=== PATIENT | female | born 1965 | race Caucasian/White ===

== ENCOUNTER 2016-04-07 18:58 | Emergency (ER) | payer MEDICARE, OTHER ==
[2016-04-07 19:21] VITALS: TEMP 98.8
--- NOTE | 2016-04-07 21:14 | ED ---
Recheck HPI - General Chief Complaint: Recheck/Abnormal Lab/Rx Stated Complaint: post op infection Time Seen by Provider: 04/07/16 20:45 Source: patient, RN notes reviewed Mode of arrival: ambulatory - History of Present Illness Initial Comments: Patient is a 50-year-old female presents to the emergency room for evaluation of postsurgical wounds. Patient states she had a gastric bypass done by Dr. Fiore on 03/21/16. Patient states that she's been following up with Dr. Fiore for postop rechecks for the past few weeks. Patient states she had an ALLERGIC reaction to the Dermabond placed over the surgical incisions. Patient states she developed a rash around each one of her surgical wounds. Patient states she's been applying Vaseline over them. Patient states the rash has improved since it started but was wondering if she can apply anything else to the areas. Patient states Dr. Fiore does know about these rashes. Patient also states that she's been developing some green drainage coming out of one of her incisional sites. Patient states that she discussed this with Dr. Fiore during her last visit on the and Dr. Fiore said it would clear up. Patient denies being placed on any antibiotics. Patient denies any fevers or chills. Patient denies any significant abdominal pain. Patient denies chest pain or shortness of breath. - Related Data Home Medications Medication Instructions Recorded Confirmed Topiramate [Topamax] 100 mg PO HS 09/01/13 04/04/16 Escitalopram [Lexapro] 20 mg PO DAILY 10/14/13 04/04/16 Nystatin [Nystop] 1 applic TOPICAL BID 06/11/15 04/04/16 SUMAtriptan SUCCINATE [Imitrex] 100 mg PO DAILY PRN 02/15/16 04/04/16 ARIPiprazole [Abilify] 20 mg PO DAILY 03/21/16 04/04/16 Previous Rx's Medication Instructions Recorded Lisinopril-Hctz 10-12.5 mg 1 tab PO DAILY #30 tab 06/12/15 [Zestoretic 10-12.5] Omeprazole 40 mg PO DAILY #90 capsule. 03/21/16 Cephalexin [Keflex] 500 mg PO Q6HR 7 Days 01/01/17 Mupirocin 2% Oint [Bactroban 2% 1 applic TOPICAL TID PRN #1 tube 04/07/16 Oint] Allergies Allergy/AdvReac Type Severity Reaction Status Date / Time latex Allergy Rash/Hives Verified 04/07/16 19:21 Penicillins Allergy Rash/Hives,throat Verified 04/07/16 19:21 swelling DERMABON Allergy Itching Uncoded 04/07/16 19:21 Review of Systems ROS Statement: Those systems with pertinent positive or pertinent negative responses have been documented in the HPI. ROS Other: All systems not noted in ROS Statement are negative. Past Medical History Past Medical History: COPD, Hypertension, Sleep Apnea/CPAP/BIPAP Additional Past Medical History / Comment(s): TMJ, migraines, edema of legs and ankles, no cpap used, History of Any Multi-Drug Resistant Organisms: None Reported Past Surgical History: Adenoidectomy, Bariatric Surgery, Bladder Surgery, Cholecystectomy, Orthopedic Surgery, Tonsillectomy, Uterine Ablation Additional Past Surgical History / Comment(s): rt ankle ORIF , CERVICAL FUSION, LAPBAND PLACEMENT AND later REMOVAL, rt eye tube placed/removed, uvuloplasty, septoplasty.03-21-16 JUDY EN Y Past Anesthesia/Blood Transfusion Reactions: No Reported Reaction Past Psychological History: Schizoaffective Disorder Smoking Status: Former smoker Past Alcohol Use History: None Reported Additional Past Alcohol Use History / Comment(s): quit smoking Dec 2015, Smoked 1 PPD. Started smoking at age 14. Past Drug Use History: None Reported - Past Family History Mother Family Medical History: Diabetes Mellitus Brother(s) Family Medical History: Diabetes Mellitus Father Family Medical History: Cancer Additional Family Medical History / Comment(s): Colon Cancer General Exam - General Exam Comments Initial Comments: Sitting in exam room, no acute distress. Limitations: no limitations General appearance: alert, in no apparent distress Head exam: Present: atraumatic, normocephalic, normal inspection Eye exam: Present: normal appearance ENT exam: Present: normal exam Neck exam: Present: normal inspection Respiratory exam: Present: normal lung sounds bilaterally. Absent: respiratory distress Cardiovascular Exam: Present: regular rate, normal rhythm, normal heart sounds GI/Abdominal exam: Present: soft, other (Multiple feeling surgical wounds over her abdomen. Surrounded with erythematous papular-like rash. Incision in left lower quadrant that has some white drainage. No surrounding erythema.) Extremities exam: Present: normal inspection Back exam: Present: normal inspection Neurological exam: Present: alert, oriented X3, CN II-XII intact, normal gait Psychiatric exam: Present: normal affect, normal mood Skin exam: Present: warm, dry, intact, normal color Course Vital Signs 04/07/16 04/07/16 19:17 21:40 Temperature 98.8 F Pulse Rate 86 78 Respiratory 18 16 Rate Blood Pressure 137/91 131/74 O2 Sat by Pulse 97 98 Oximetry Medical Decision Making - Medical Decision Making Patient is a 50-year-old female presents to the emergency room for postsurgical wound evaluation. Will place patient on mupirocin ointment to apply over the rash and will place patient on Keflex to cover for beginning of wound infection. Culture was taken of the wound and pending. Advised patient to follow-up with her surgeon for reevaluation in 24-48 hours. Patient states she understands everything that was discussed with her. Return parameters discussed. Case discussed with Dr. Clinton. Disposition Clinical Impression: Surgical wound infection, Allergic reaction Disposition: HOME SELF-CARE Condition: Good Instructions: Acute Rash (ED), Wound Infection (ED) Additional Instructions: Clean surgical wound with antibacterial soap and water. Apply ointment as directed. Take antibiotics as directed. Please follow-up with surgeon for reevaluation. If any new symptom arises, symptoms worsen or fever develops, return to ER as soon as possible. Prescriptions: Cephalexin [Keflex] 500 mg PO Q6HR 7 Days Mupirocin 2% Oint [Bactroban 2% Oint] 1 applic TOPICAL TID PRN #1 tube PRN Reason: Allergic Reaction Referrals: Froilan Keith DO [Primary Care Provider] - 1-2 days Coretta Dailey MD [STAFF PHYSICIAN] - 1-2 days Time of Disposition: 21:11
[2016-04-07 21:41] VITALS: BP 131/74; PULSE 78; RESP 16
== END 2016-04-07 21:41 | disposition home or self-care (01) ==
LOC: EC 18:58
DX: T81.4XXA Infection following a procedure, initial encounter (principal); R21 Rash and other nonspecific skin eruption; T50.995A Adverse effect of other drugs, medicaments and biological substances, initial encounter; Z98.84 Bariatric surgery status; G43.909 Migraine, unspecified, not intractable, without status migrainosus; F25.9 Schizoaffective disorder, unspecified; I10 Essential (primary) hypertension; Z79.899 Other long term (current) drug therapy; Z91.040 Latex allergy status; Z88.0 Allergy status to penicillin; Z87.891 Personal history of nicotine dependence
CPT/HCPCS: 87070; 87077; 87186; 87205; 99283

== ENCOUNTER → 2016-04-17 | Outpatient (CLI) | payer MEDICARE, OTHER ==
[2016-04-17 15:31] VITALS: BP 193/108; PULSE 82; RESP 16; TEMP 97.8; BMI 46.4
--- NOTE | 2016-05-05 17:10 | P.PN ---
Progress Note - Text \ DATE OF SERVICE: 04/17/2016 CHIEF COMPLAINT: Followup gastric bypass. HISTORY OF PRESENT ILLNESS: Rupa Bradley is a 50-year-old female who is status post Esmer-en-Y gastric bypass on 03/21/2016. She is approximately 3 weeks out. She had just went to the emergency room one week ago, as she developed impetigo of the skin. She has severe allergy to Dermabond. As a result, she was placed on both Keflex including mupirocin with resolution of her itching along her skin. She also has been refilled of her blood pressure medications. She comes with moderate concerns of her medications. Her highest was 272 pounds. Her ideal body weight is 135 pounds. Today she comes in weighing 253 pounds. She has already lost 19 pounds in 3 weeks. She has lost actually 5 pounds in one week. Body mass index is now reduced from 50 down to 46.4. She has completed her course of Keflex as well. She is tolerating protein shakes. No reports of nausea, vomiting. PHYSICAL EXAM: VITAL SIGNS: 97.8, 82, 16, 193/108, 5 foot 2, 253 pounds. Body mass index 46.4. GENERAL: Well-developed female, in no acute distress. ABDOMEN: Resolution of crusting and impetigo along the abdomen. No signs of wound dehiscence. All wounds are granulated. No signs of wound infection. MUSCULOSKELETAL: 1+ bilateral pitting edema. No focal or lateralizing signs. Cranial nerves 2 through 12 grossly within normal limits. HEENT: Extraocular movements are grossly intact. No sclera icterus. GENERAL: Well-developed female in no acute distress. NECK: Supple without lymphadenopathy. CHEST: Nonlabored respirations with equal bilateral excursions. CARDIOVASCULAR: Regular rate and rhythm. NEURO: No focal or lateralizing signs. Cranial nerves II through XII grossly within normal limits. PSYCH: Alert and oriented to person, place and time. Labs are pending. ASSESSMENT: 1. Morbid obesity due to excess calories. 2. Body mass index reduced from 50 down to 46.4. 3. Status post Esmer-en-Y gastric bypass. 4. History of impetigo of the abdominal skin, now resolved. 5. Hypertension. 6. Second hand exposure of nicotine. PLAN: 1. I have going over review of her medications whereby this is her first isolated episode of hypertension. Will require repeat of her blood pressure. 2. She does have mild trace edema on exam for which she will continue with lisinopril-hydrochlorothiazide. 3. Also recommended followup in one week addressing her diet. 4. Recommend tobacco free environment; however, she reports secondhand exposure.
== END | disposition home or self-care (01) ==
LOC: BARWHC3 14:39
PROVIDERS: ATTEND Surgery Plastic and Reconstructive Surgery
DX: Z48.815 Encounter for surgical aftercare following surgery on the digestive system (principal); Z98.84 Bariatric surgery status; E21.1 Secondary hyperparathyroidism, not elsewhere classified; E89.1 Postprocedural hypoinsulinemia; D50.8 Other iron deficiency anemias; E44.0 Moderate protein-calorie malnutrition; E55.9 Vitamin D deficiency, unspecified; N19 Unspecified kidney failure; K74.1 Hepatic sclerosis; K50.90 Crohn's disease, unspecified, without complications; Z68.42 Body mass index [BMI] 45.0-49.9, adult; I10 Essential (primary) hypertension; Z77.22 Contact with and (suspected) exposure to environmental tobacco smoke (acute) (chronic)
CPT/HCPCS: 99211

== ENCOUNTER → 2016-04-19 | Outpatient (CLI) | payer MEDICARE, OTHER ==
[2016-04-19 08:09] LABS: Partial Thromboplastin Time 24.7 sec (22.0-30.0); Prothrombin Time 10.4 sec (9.0-12.0)
[2016-04-19 08:10] LABS: CH 25.1; CHCM 31.1; HCT 44.8 % (34.0-46.0); HDW 2.58; HGB 13.7 gm/dL (11.4-16.0); Hypochromasia Slight; MCH 24.9 pg (25.0-35.0); MCHC 30.7 g/dL (31.0-37.0); Mean Platelet Volume 8.6; RBC 5.51 m/uL (3.80-5.40); RDW 14.3 % (11.5-15.5); WBC 10.3 k/uL (3.8-10.6)
[2016-04-19 08:12] LABS: MCV 81.3 fL (80.0-100.0)
[2016-04-19 12:16] LABS: ALT 66 U/L (9-52); AST 42 U/L (14-36); Alkaline Phosphatase 142 U/L (38-126); Anion Gap 12 mmol/L; Blood Urea Nitrogen 13 mg/dL (7-17); Calcium 9.9 mg/dL (8.4-10.2); Carbon Dioxide 23 mmol/L (22-30); Chloride 108 mmol/L (98-107); Cholesterol 180 mg/dL (<200); Glucose 114 mg/dL (74-99); HDL Cholesterol 37 mg/dL (40-60); Iron 73 ug/dL (37-170); Magnesium 2.2 mg/dL (1.6-2.3); Non-African American GFR(MDRD) 58 (>60 ml/min/1.73 sqM); Sodium 143 mmol/L (137-145); Total Bilirubin 0.5 mg/dL (0.2-1.3); Total Protein 6.9 g/dL (6.3-8.2); Triglycerides 261 mg/dL (<150)
[2016-04-19 12:28] LABS: % Iron Saturation 23.9 % (20-50); Prealbumin 20 mg/dL (18-36); Total Iron Binding Capacity 305 ug/dL (265-497)
[2016-04-19 13:22] LABS: Vitamin B12 320 pg/mL (239-931)
[2016-04-23 15:33] LABS: Selenium 161 mcg/L (63-160)
== END | disposition home or self-care (01) ==
LOC: LABWHC1 07:26
PROVIDERS: ATTEND Surgery Plastic and Reconstructive Surgery
DX: E66.01 Morbid (severe) obesity due to excess calories (principal); E21.1 Secondary hyperparathyroidism, not elsewhere classified; E89.1 Postprocedural hypoinsulinemia; D50.8 Other iron deficiency anemias; K90.89 Other intestinal malabsorption; E55.9 Vitamin D deficiency, unspecified; K74.1 Hepatic sclerosis; N19 Unspecified kidney failure; K50.90 Crohn's disease, unspecified, without complications
CPT/HCPCS: 36415; 80053; 80061; 82306; 82525; 82607; 82728; 82746; 83036; 83540; 83550; 83735; 83970; 84100; 84134; 84255; 84425; 84443; 84590; 84630; 85027; 85610; 85730

== ENCOUNTER → 2016-04-24 | Outpatient (CLI) | payer MEDICARE, OTHER ==
[2016-04-24 16:01] VITALS: BP 152/103; PULSE 76; RESP 16; TEMP 98
[2016-04-24 16:30] VITALS: BMI 45.5
--- NOTE | 2016-05-05 20:03 | P.PN ---
Progress Note - Text DATE OF SERVICE: 04/24/2016 CHIEF COMPLAINT: Follow-up gastric bypass. HISTORY OF PRESENT ILLNESS: Rupa Bradley is a 50-year-old female status post Esmer-en-Y gastric bypass on 03/21/2016. Her history is significant for previous revision from adjustable gastric band. At a height of 5 feet 2 inches her ideal body weight is 135 pounds. Her weight before surgery was 272 pounds. Today she comes in weighing 248 pounds. She has already lost 24 pounds in approximately 3 weeks. Body mass index is reduced from 50 down to 45.5. Previously she had developed skin infection after developing severe contact dermatitis from her Dermabond, which then became secondarily infected as she reports scratching with her finger nails. She had impetigo, which is treated with a topical antibiotic including oral antibiotics. Separately, she has history of hypertension, which upon her last visit, she had been restarted on some of her blood pressure medications by her primary care provider. She denies any troubles with swelling. No reports of fevers or chills. She is taking adequate oral intake. Protein intake is over 70 grams daily. Now she presents for further evaluation and management. She also reports that her clothes are fitting more loose. PHYSICAL EXAM: VITAL SIGNS: 98.0, 76, 16, 152/103; 5 feet, 2 inches, 248 pounds. Body mass is a 45.5. SKIN: Impetigo along the abdomen completely resolved with hyperpigmentation noted around the skin edges. ABDOMEN: Wounds granulated. No palpable incisional hernias. No surgical site infections. MUSCULOSKELETAL: Trace pitting edema. HEENT: Extraocular movements are grossly intact. No sclera icterus. GENERAL: Well-developed female in no acute distress. NECK: Supple without lymphadenopathy. CHEST: Nonlabored respirations with equal bilateral excursions. CARDIOVASCULAR: Regular rate and rhythm. NEURO: No focal or lateralizing signs. Cranial nerves II through XII grossly within normal limits. PSYCH: Alert and oriented to person, place and time. LABS: Bariatric metabolic panel reviewed demonstrating hemoglobin normal at 13.7. Phosphorus elevated at 5.0. Glucose was elevated at 114. AST was elevated at 42. ALT elevated at 66, alkaline phosphatase elevated at 142. Triglycerides elevated. HDL low at 37. Vitamin D low at 25.6. Parathyroid hormone elevated at 87.6. ASSESSMENT: 1. Morbid obesity due to excess calories. 2. Body mass index reduced from 49.9 down to 45.5. 3. Status post revision to Esmer-en-Y gastric bypass. 4. History of contact dermatitis secondary to DERMABOND allergy. 5. Secondary infection impetigo on skin. 6. Dietary surveillance and counseling. 7. Hypertensive heart disease. PLAN: 1. I have gone over her nutritional status whereby goal protein intake should be maintained over 70 gram daily. 2. Her impetigo on the skin is completely resolved. DERMABOND is now listed as her allergy. 3. She is doing extremely well with her recent weight loss. 4. Restart multivitamins in approximately a week. 5. I have gone over her medications review whereby she was asked to restart her Norvasc for her blood pressure. 6. Recommend followup in approximately one month.
== END | disposition home or self-care (01) ==
LOC: BARWHC3 14:49
PROVIDERS: ATTEND Surgery Plastic and Reconstructive Surgery
DX: Z48.815 Encounter for surgical aftercare following surgery on the digestive system (principal); Z71.3 Dietary counseling and surveillance; Z98.84 Bariatric surgery status; E66.01 Morbid (severe) obesity due to excess calories; Z68.42 Body mass index [BMI] 45.0-49.9, adult; I10 Essential (primary) hypertension; L23.1 Allergic contact dermatitis due to adhesives; I11.9 Hypertensive heart disease without heart failure; Z88.8 Allergy status to other drugs, medicaments and biological substances
CPT/HCPCS: 97803; G0463; 99211

== ENCOUNTER → 2016-07-18 | Outpatient (CLI) | payer MEDICARE, OTHER ==
[2016-07-18 09:08] VITALS: BP 122/88; PULSE 57; RESP 16; TEMP 97.8; BMI 40.1
--- NOTE | 2016-08-13 22:58 | P.PN ---
Progress Note - Text DATE OF SERVICE: 07/18/2016 CHIEF COMPLAINT: Follow-up gastric bypass. HISTORY OF PRESENT ILLNESS: Rupa Bradley is a 50-year-old female who is status post Esmer-En-Y gastric bypass on 03/21/2016. She is now 4 months out. At her height of 5 foot 2 inches, her ideal body weight is 135 pounds. Her highest weight was 310 pounds. Today she comes in weighing 219 pounds. Attained weight loss is already 91 pounds lifetime. Her percent excess weight loss is 52%. Body mass index is reduced from 56.8 down to 40.1. She has lost 30 pounds since her last follow-up over two plus months ago. She is only 84 pounds overweight. Her blood pressure is now resolved. Her diabetes has resolved. Her mood has been stable. Incidentally she just got engaged. She confirms at least a 60 pound weight loss in 4 months. Her personal goal is to get down to 140 pounds. She also reports her gastroesophageal reflux has completely resolved. She has moderate reduction of her overall medications. She reports not smoking. PAST MEDICAL HISTORY: 1. Gastroesophageal reflux disease. 2. Depression. 3. Seizure disorder. 4. Hypercholesterolemia. 5. Hypertension. 6. Obstructive sleep apnea. 7. Bladder urgency. 8. Osteoarthritis. 9. Schizoaffective disorder. 10. Tobacco dependence. 11. Morbid obesity. 12. Recent unstable angina. PAST SURGICAL HISTORY: 1. Lab band placement. 2. Lap band removal in June 2013. 3. Anterior cervical disc fusion. 4. History of right broken ankle. 5. Colonoscopy. 6. Upper endoscopy. 7. Status post Esmer-en-Y gastric bypass. MEDICATIONS: 1. Topamax. 2. Imitrex. 3. Nystatin. 4. Multivitamin. 5. ( ). 6. Lexapro. 7. Abilify. ALLERGIES: 1. LATEX. 2. PENICILLIN. SOCIAL HISTORY: Active tobacco use. No recent illicit drug use. FAMILY HISTORY: Significant for breast including colon cancer. REVIEW OF SYSTEMS: CONSTITUTIONAL: [place] body weight is 135 pounds. Highest weight of 310 pounds. Current weight is 219 pounds. Lifetime weight loss 91 pounds. Percent excess weight loss, 52%. Body mass is reduced from 56.8 down to 40.1. She is overweight by 84 pounds. Weight loss of at least 30 pounds in the last 3 months. RESPIRATORY: Resolved obstructive sleep apnea. No reports of recent pneumonias. CARDIOVASCULAR: Resolution of hypertension with moderate reduction for her blood pressure medications. PSYCH: Her mood is stable. She denies any extremes of mood. MUSCULOSKELETAL: Moderate improvement of lower back pain including bilateral extremity edema and bilateral hip and knee pain. ENDOCRINE: Resolved diabetes type 2. Denies any active thyroid disorder. GASTROINTESTINAL: History of gastroesophageal reflux disease. NEUROLOGICAL: History of chronic migraines. HEENT: No troubles with vision or hearing. Recent tonsillectomy. She reports no dysphagia. HEMATOLOGIC: No reports of DVT or pulmonary embolism. PHYSICAL EXAM: VITAL SIGNS: 97.8, 57, 16, 122/88; 5 foot 2, 219 pounds. Body mass index 40.1. ABDOMEN: Soft, nontender, nondistended. All skin incisions granulating. No palpable incisional hernias. MUSCULOSKELETAL: No clubbing, cyanosis, or edema. HEENT: Extraocular movements are grossly intact. No sclera icterus. GENERAL: Well-developed female in no acute distress. NECK: Supple without lymphadenopathy. CHEST: Nonlabored respirations with equal bilateral excursions. CARDIOVASCULAR: Regular rate and rhythm. NEURO: No focal or lateralizing signs. Cranial nerves II through XII grossly within normal limits. PSYCH: Alert and oriented to person, place and time. LABS: Previous labs demonstrate hemoglobin of 13.7. Phosphorus elevated at 5.0. AST and ALT were elevated at 42 and 66 respectively. Alkaline phosphatase was elevated at 142. Triglycerides was elevated at 261. HDL is low at 37. Vitamin D was low at 25.6. Parathyroid hormone was elevated at 7.6. Sodium elevated at 161. Hemoglobin A1c demonstrates improvement. ASSESSMENT: 1. Morbid obesity due to excess caloric intake. 2. Complications from adjustable gastric band requiring removal. 3. Body mass index reduced from 56.8 down to 40.1. 4. Chronic hypertension with mild cardiomyopathy, improved. 5. Bipolar disorder without recent psychosis, stable. 6. History of depression without recent psychosis. 7. Nicotine abuse, chronic and in remission. 8. Osteoarthritis of bilateral knees secondary to morbid obesity, improved. 9. Osteoarthritis of lower back secondary to morbid obesity, improved. 10. Obstructive sleep apnea, moderate, resolved. 11. 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 12. Gastroesophageal reflux disease is completely resolved. 13. Hypertension, improved. 14. Diabetes type 2, resolved. 15. Renal insufficiency stage II. 16. Osteoarthritis of bilateral hips and knees, improved. PLAN: 1. She has done extremely well with her weight loss especially with revisional operation. However, would recommend continue multivitamin. 2. Her previous labs were reviewed whereby she needed updated bariatric metabolic panel. 3. She reports getting which we are extremely happy for her change in lifestyle. She is seeking additional weight loss, whereby goal protein intake of over 75 grams daily was advised. 4. She denies any gastrointestinal symptoms such as dysphagia or abdominal pain for which we will follow.
== END | disposition home or self-care (01) ==
LOC: BARWHC3 06-27 10:04
PROVIDERS: ATTEND Surgery Plastic and Reconstructive Surgery
DX: Z48.815 Encounter for surgical aftercare following surgery on the digestive system (principal); E66.01 Morbid (severe) obesity due to excess calories; E21.1 Secondary hyperparathyroidism, not elsewhere classified; D50.8 Other iron deficiency anemias; E44.0 Moderate protein-calorie malnutrition; E55.9 Vitamin D deficiency, unspecified; K74.1 Hepatic sclerosis; N19 Unspecified kidney failure; F31.9 Bipolar disorder, unspecified; K50.90 Crohn's disease, unspecified, without complications; Z88.0 Allergy status to penicillin; Z72.0 Tobacco use; Z68.41 Body mass index [BMI] 40.0-44.9, adult; Z91.040 Latex allergy status; Z79.899 Other long term (current) drug therapy
CPT/HCPCS: 97803; G0463; 99211

== ENCOUNTER → 2016-09-26 | Outpatient (CLI) | payer MEDICARE, OTHER ==
[2016-09-26 12:37] VITALS: BP 168/106; PULSE 80; RESP 16; TEMP 97.8
[2016-09-26 12:55] VITALS: BMI 37.6
--- NOTE | 2016-10-09 20:13 | P.PN ---
Progress Note - Text DATE OF SERVICE: 09/26/2016 CHIEF COMPLAINT: Follow-up gastric bypass. HISTORY OF PRESENT ILLNESS: Ruap Bradley is a 50-year-old female who is status post Esmer-En-Y gastric bypass on 03/21/2016. She is now 4 months out. At her height of 5 foot 2 inches, her ideal body weight is 135 pounds. Her highest weight was 310 pounds. Today she comes in weighing 205 pounds. Attained weight loss is already 104 pounds lifetime. Her percent excess weight loss is 60%. Body mass index is reduced from 56.8 down to 37.6. She has lost 13 pounds since her last follow-up over 2 months ago. She is 70 pounds overweight. Her blood pressure is now resolved. She is off all medications related to her diabetes. Separately, she reports traveling on the road and eating high salt and high carbohydrate foods. No reports of dysphagia. No reports of nausea and vomiting. No reports of abdominal pain. She has restarted one of her medications for blood pressure. PAST MEDICAL HISTORY: 1. Gastroesophageal reflux disease. 2. Depression. 3. Seizure disorder. 4. Hypercholesterolemia. 5. Hypertension. 6. Obstructive sleep apnea. 7. Bladder urgency. 8. Osteoarthritis. 9. Schizoaffective disorder. 10. Tobacco dependence. 11. Morbid obesity. 12. Recent unstable angina. 13. Diabetes type 2, resolved. PAST SURGICAL HISTORY: 1. Lab band placement. 2. Lap band removal in June 2013. 3. Anterior cervical disc fusion. 4. History of right broken ankle. 5. Colonoscopy. 6. Upper endoscopy. 7. Status post Esmer-en-Y gastric bypass. MEDICATIONS: 1. Topamax. 2. Imitrex. 3. Nystatin. 4. Multivitamin. 5. Zestoretic 6. Lexapro. 7. Abilify. ALLERGIES: 1. LATEX. 2. PENICILLIN. SOCIAL HISTORY: Active tobacco use. No recent illicit drug use. FAMILY HISTORY: Significant for breast including colon cancer. REVIEW OF SYSTEMS: CONSTITUTIONAL: At her height of 5 foot 2 inches, her ideal body weight is 135 pounds. Her highest weight was 310 pounds. Today she comes in weighing 205 pounds. Attained weight loss is already 104 pounds lifetime. Her percent excess weight loss is 60%. Body mass index is reduced from 56.8 down to 37.6. She has lost 13 pounds since her last follow-up over 2 months ago. She is 70 pounds overweight. RESPIRATORY: Resolved obstructive sleep apnea. No reports of recent pneumonias. CARDIOVASCULAR: Resolution of hypertension with moderate reduction for her blood pressure medications. PSYCH: Her mood is stable. She denies any extremes of mood. MUSCULOSKELETAL: Moderate improvement of lower back pain including bilateral extremity edema and bilateral hip and knee pain. ENDOCRINE: Resolved diabetes type 2. Denies any active thyroid disorder. GASTROINTESTINAL: History of gastroesophageal reflux disease. NEUROLOGICAL: History of chronic migraines. HEENT: No troubles with vision or hearing. Recent tonsillectomy. She reports no dysphagia. HEMATOLOGIC: No reports of DVT or pulmonary embolism. PHYSICAL EXAM: VITAL SIGNS: 5 foot 2, 205 pounds. Body mass index 37.6 Vital Signs Temp 97.8 F 09/26/16 12:34 Pulse 80 09/26/16 12:34 Resp 16 09/26/16 12:34 BP 168/106 09/26/16 12:34 Pulse Ox ABDOMEN: Soft, nontender, nondistended. All skin incisions granulating. No palpable incisional hernias. MUSCULOSKELETAL: No clubbing, cyanosis, or edema. HEENT: Extraocular movements are grossly intact. No sclera icterus. GENERAL: Well-developed female in no acute distress. NECK: Supple without lymphadenopathy. CHEST: Nonlabored respirations with equal bilateral excursions. CARDIOVASCULAR: Regular rate and rhythm. NEURO: No focal or lateralizing signs. Cranial nerves II through XII grossly within normal limits. PSYCH: Alert and oriented to person, place and time. LABS: Pendingg. ASSESSMENT: 1. Morbid obesity due to excess caloric intake. 2. Complications from adjustable gastric band requiring removal. 3. Body mass index reduced from 56.8 down to 37.6. 4. Chronic hypertension with mild cardiomyopathy, improved. 5. Bipolar disorder without recent psychosis, stable. 6. History of depression without recent psychosis. 7. Nicotine abuse, chronic and in remission. 8. Osteoarthritis of bilateral knees secondary to morbid obesity, improved. 9. Osteoarthritis of lower back secondary to morbid obesity, improved. 10. Obstructive sleep apnea, moderate, resolved. 11. 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 12. Gastroesophageal reflux disease is completely resolved. 13. Hypertension, improved. 14. Diabetes type 2, resolved. 15. Renal insufficiency stage II. 16. Osteoarthritis of bilateral hips and knees, improved. PLAN: 1. Her last bariatric labs were 2016. With her eating habits, recommend patient to metabolic panel. 2. Dietary surveillance and counseling including using a food journal was advised. 3. Goal intake of 70 g daily protein. 4. Recommend to take a multivitamins. 5. I've asked her to a decrease her high intake of processed and salty foods as her blood pressure is significantly high. 6. Follow-up for November 2016.
== END | disposition home or self-care (01) ==
LOC: BARWHC3 11:14
PROVIDERS: ATTEND Surgery Plastic and Reconstructive Surgery
DX: Z09 Encounter for follow-up examination after completed treatment for conditions other than malignant neoplasm (principal); E66.01 Morbid (severe) obesity due to excess calories; I10 Essential (primary) hypertension; I42.9 Cardiomyopathy, unspecified; F31.9 Bipolar disorder, unspecified; M17.0 Bilateral primary osteoarthritis of knee; M47.816 Spondylosis without myelopathy or radiculopathy, lumbar region; F17.200 Nicotine dependence, unspecified, uncomplicated; Z91.040 Latex allergy status; Z68.37 Body mass index [BMI] 37.0-37.9, adult; Z88.0 Allergy status to penicillin; Z79.899 Other long term (current) drug therapy; Z98.84 Bariatric surgery status
CPT/HCPCS: 97803; G0463; 99211

== ENCOUNTER → 2016-11-13 | Outpatient (CLI) | payer MEDICARE, OTHER ==
[2016-11-13 14:01] VITALS: BP 159/98; PULSE 63; TEMP 98.4; BMI 35.8
--- NOTE | 2016-12-14 20:31 | P.PN ---
Progress Note - Text DATE OF SERVICE: 11/13/2016 CHIEF COMPLAINT: Follow-up gastric bypass. HISTORY OF PRESENT ILLNESS: Rupa Bradley is a 50-year-old female who is status post Esmer-En-Y gastric bypass on 03/21/2016. She is now 8 months out. At her height of 5 foot 2 inches, her ideal body weight is 135 pounds. Her highest weight was 310 pounds. Today she comes in weighing 195 pounds. Her weight loss is 115 pounds lifetime. Her percent excess weight loss is 66%. Body mass index is reduced from 56.8 down to 35.8. She has lost 10 pounds since her last follow-up over 2 months ago. She is 60 pounds overweight. She has cut down her processed food intake. Her personal goal is to continue with more weight loss down to 120 to 130 pounds. She has stopped smoking however she is exposed to secondhand smoking. Her son and boyfriend smokes. She reports panniculitis. She presents for follow-up. PAST MEDICAL HISTORY: 1. Gastroesophageal reflux disease. 2. Depression. 3. Seizure disorder. 4. Hypercholesterolemia. 5. Hypertension. 6. Obstructive sleep apnea. 7. Bladder urgency. 8. Osteoarthritis. 9. Schizoaffective disorder. 10. Tobacco dependence. 11. Morbid obesity. 12. Recent unstable angina. 13. Diabetes type 2, resolved. PAST SURGICAL HISTORY: 1. Lab band placement. 2. Lap band removal in June 2013. 3. Anterior cervical disc fusion. 4. History of right broken ankle. 5. Colonoscopy. 6. Upper endoscopy. 7. Status post Esmer-en-Y gastric bypass. MEDICATIONS: 1. Buspar. 2. Zestril. 3. Nystatin. 4. Multivitamin. 5. Vitamin D. 6. Lexapro. 7. Abilify. ALLERGIES: 1. LATEX. 2. PENICILLIN. SOCIAL HISTORY: Active second hand tobacco exposure. No recent illicit drug use. FAMILY HISTORY: Significant for breast including colon cancer. REVIEW OF SYSTEMS: CONSTITUTIONAL: At her height of 5 foot 2 inches, her ideal body weight is 135 pounds. Her highest weight was 310 pounds. Today she comes in weighing 195 pounds. Attained weight loss is 115 pounds lifetime. Her percent excess weight loss is 66%. Body mass index is reduced from 56.8 down to 35.8. She has lost 10 pounds since her last follow-up over 2 months ago. She is 60 pounds overweight. RESPIRATORY: Resolved obstructive sleep apnea. No reports of recent pneumonias. CARDIOVASCULAR: Moderate reduction in her blood pressure medications. PSYCH: Her mood is stable. She denies any extremes of mood. MUSCULOSKELETAL: Moderate improvement of lower back pain including bilateral extremity edema and bilateral hip and knee pain. ENDOCRINE: Resolved diabetes type 2. Denies any active thyroid disorder. GASTROINTESTINAL: History of gastroesophageal reflux disease, now resolved. No dumping syndrome. NEUROLOGICAL: History of chronic migraines. No stroke or seizure disorder. HEENT: No troubles with vision or hearing. Recent tonsillectomy. She reports no dysphagia. HEMATOLOGIC: No reports of DVT or pulmonary embolism. PHYSICAL EXAM: VITAL SIGNS: 5 foot 2, 195 pounds. Body mass index 35.8 Vital Signs 11/13/16 13:49 Temperature 98.4 F Pulse Rate 63 Blood Pressure 159/98 ABDOMEN: Soft, nontender, nondistended. All skin incisions granulating. No palpable incisional hernias. MUSCULOSKELETAL: No clubbing, cyanosis, or edema. HEENT: Extraocular movements are grossly intact. No sclera icterus. Hears conversational speech. GENERAL: Well-developed female in no acute distress. NECK: Supple without lymphadenopathy. CHEST: Nonlabored respirations with equal bilateral excursions. CARDIOVASCULAR: Regular rate and rhythm. NEURO: No focal or lateralizing signs. Cranial nerves II through XII grossly within normal limits. PSYCH: Alert and oriented to person, place and time. SKIN: Has panniculitis. No skin cancer. LABS: Pending. ASSESSMENT: 1. Morbid obesity due to excess caloric intake. 2. Complications from adjustable gastric with removal. 3. Body mass index reduced from 56.8 down to 35.8. 4. Chronic hypertension with mild cardiomyopathy, improved. 5. Bipolar disorder without recent psychosis, stable. 6. History of depression without recent psychosis. 7. Nicotine abuse, chronic and in remission. 8. Osteoarthritis of bilateral knees secondary to morbid obesity, improved. 9. Osteoarthritis of lower back secondary to morbid obesity, improved. 10. Obstructive sleep apnea, moderate, resolved. 11. 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 12. Gastroesophageal reflux disease is completely resolved. 13. Hypertension, improved. 14. Diabetes type 2, resolved. 15. Renal insufficiency stage II. 16. Osteoarthritis of bilateral hips and knees, improved. 17. Vitamin D deficiency. PLAN: 1. Recommend bariatric metabolic panel. 2. Dietary surveillance and counseling was reviewed including decrease carbohydrates. 3. Vitamin D prescription was written on her behalf. 4. She has panniculitis recommend Nystatin powder.
== END | disposition home or self-care (01) ==
LOC: BARWHC3 13:26
PROVIDERS: ATTEND Surgery Plastic and Reconstructive Surgery
DX: Z48.815 Encounter for surgical aftercare following surgery on the digestive system (principal); Z98.84 Bariatric surgery status; E66.01 Morbid (severe) obesity due to excess calories; I11.9 Hypertensive heart disease without heart failure; F32.9 Major depressive disorder, single episode, unspecified; F31.9 Bipolar disorder, unspecified; M17.0 Bilateral primary osteoarthritis of knee; M47.816 Spondylosis without myelopathy or radiculopathy, lumbar region; I12.9 Hypertensive chronic kidney disease with stage 1 through stage 4 chronic kidney disease, or unspecified chronic kidney disease; N18.2 Chronic kidney disease, stage 2 (mild); M16.0 Bilateral primary osteoarthritis of hip; E55.9 Vitamin D deficiency, unspecified; Z68.35 Body mass index [BMI] 35.0-35.9, adult
CPT/HCPCS: 99211

== ENCOUNTER 2017-02-15 09:18 | Emergency (ER) | payer MEDICARE, OTHER ==
[2017-02-15 09:23] VITALS: TEMP 98.6
[2017-02-15] MEDS ORDERED: SODIUM CHLORIDE 0.9% 1,000 ML IV STA ×2 (09:45)
--- NOTE | 2017-02-15 09:48 | ED ---
General Adult HPI - General Chief complaint: Recheck/Abnormal Lab/Rx Stated complaint: hypertension Time Seen by Provider: 02/15/17 09:35 Source: patient, RN notes reviewed Mode of arrival: ambulatory Limitations: no limitations - History of Present Illness Initial comments: This is a 51-year-old female history of hypertension who presents because she states she's been feeling well. She notes her blood pressure has been going up was 197/125 and home upon arrival here she states it was 197/104 she just doesn' t feel quite right she denies any overt headache blurry vision nausea vomiting she did have a racing heart she stated. She states she is currently is every day smoker though she states she hasn't smoked since last night. - Related Data Home Medications Medication Instructions Recorded Confirmed Escitalopram [Lexapro] 20 mg PO DAILY 10/14/13 02/15/17 ARIPiprazole [Abilify] 20 mg PO DAILY 03/21/16 02/15/17 Multivitamins, Thera [Multivitamin] 1 tab PO DAILY 04/17/16 02/15/17 Carvedilol [Coreg] 3.125 mg PO BID 02/05/17 02/15/17 Topiramate [Topamax] 100 mg PO HS 02/05/17 02/15/17 Ergocalciferol [Vitamin D2 50,000 unit PO WE 02/15/17 02/15/17 (DRISDOL)] Fluticasone Nasal Dexter [Flonase 1 spray EA NOSTRIL DAILY PRN 02/15/17 02/15/17 Nasal Dexter] Lisinopril [Zestril] 20 mg PO DAILY 02/15/17 02/15/17 SUMAtriptan SUCCINATE [Sumavel 6 mg SQ DAILY PRN 02/15/17 02/15/17 Dosepro] busPIRone HCL [Buspar] 7.5 mg PO BID 02/15/17 02/15/17 Allergies Allergy/AdvReac Type Severity Reaction Status Date / Time latex Allergy Rash/Hives Verified 02/15/17 11:09 Penicillins Allergy Rash/Hives,throat Verified 02/15/17 11:09 swelling DERMABON Allergy Itching Uncoded 02/15/17 09:23 Review of Systems ROS Statement: Those systems with pertinent positive or pertinent negative responses have been documented in the HPI. ROS Other: All systems not noted in ROS Statement are negative. Past Medical History Past Medical History: COPD, Hypertension, Sleep Apnea/CPAP/BIPAP Additional Past Medical History / Comment(s): TMJ, migraines, edema of legs and ankles, no cpap used, History of Any Multi-Drug Resistant Organisms: None Reported Past Surgical History: Adenoidectomy, Bariatric Surgery, Bladder Surgery, Cholecystectomy, Orthopedic Surgery, Tonsillectomy, Uterine Ablation Additional Past Surgical History / Comment(s): rt ankle ORIF , CERVICAL FUSION, LAPBAND PLACEMENT AND later REMOVAL, rt eye tube placed/removed, uvuloplasty, septoplasty.03-21-16 JUDY EN Y 03/21/16 by Coretta Dailey, Past Anesthesia/Blood Transfusion Reactions: No Reported Reaction Past Psychological History: Schizoaffective Disorder Smoking Status: Former smoker Past Alcohol Use History: None Reported Past Drug Use History: None Reported - Past Family History Mother Family Medical History: Diabetes Mellitus Brother(s) Family Medical History: Diabetes Mellitus Father Family Medical History: Cancer Additional Family Medical History / Comment(s): Colon Cancer General Exam - General Exam Comments Initial Comments: This is a well-developed well-nourished awake alert oriented 3 female Limitations: no limitations General appearance: alert, anxious Head exam: Present: atraumatic, normocephalic, normal inspection Eye exam: Present: normal appearance, PERRL, EOMI. Absent: scleral icterus, conjunctival injection, periorbital swelling ENT exam: Present: mucous membranes dry Neck exam: Present: normal inspection. Absent: tenderness, meningismus, lymphadenopathy Respiratory exam: Present: normal lung sounds bilaterally. Absent: respiratory distress, wheezes, rales, rhonchi, stridor Cardiovascular Exam: Present: regular rate, normal rhythm, normal heart sounds. Absent: systolic murmur, diastolic murmur, rubs, gallop, clicks GI/Abdominal exam: Present: soft, normal bowel sounds. Absent: distended, tenderness, guarding, rebound, rigid Extremities exam: Present: normal inspection, full ROM, normal capillary refill. Absent: tenderness, pedal edema, joint swelling, calf tenderness Back exam: Present: normal inspection Neurological exam: Present: alert, oriented X3, CN II-XII intact Psychiatric exam: Present: normal affect, normal mood Skin exam: Present: warm, dry, intact, normal color. Absent: rash Course Vital Signs 02/15/17 02/15/17 02/15/17 09:21 09:46 10:38 Temperature 98.6 F Pulse Rate 82 70 65 Respiratory 16 17 17 Rate Blood Pressure 197/104 200/111 194/112 O2 Sat by Pulse 99 92 L 97 Oximetry 02/15/17 02/15/17 02/15/17 11:15 11:48 12:34 Temperature Pulse Rate 59 L 62 64 Respiratory 17 17 16 Rate Blood Pressure 198/118 171/105 203/108 O2 Sat by Pulse 100 97 97 Oximetry 02/15/17 02/15/17 02/15/17 13:12 13:16 13:31 Temperature Pulse Rate 60 65 Respiratory Rate Blood Pressure 186/111 189/104 176/89 O2 Sat by Pulse Oximetry - Reevaluation(s) Reevaluation #1: 02/15/17 09:47 I did have a discussion with the patient regarding smoking cessation and the benefits thereof. We did discuss the risks of stroke hypertension and heart disease. The entire conversation lasted 3.2 minutes EKG Findings - EKG Results: EKG: interpreted by JONAS, sinus rhythm (Sinus rhythm of 62. Interval 144 QRS 90 QT since QTC of 370/383 evidence of incomplete right bundle-branch block this is compared with EKG dated 06/11/15 which does show similar morphology.) Medical Decision Making - Medical Decision Making The patient blood pressure fight improved after IV injections patient be discharged to follow-up with her doctor is recommended she increase her Coreg to twice the dose she will follow-up with her doctor in 2 days as planned - Lab Data Result diagrams: 02/15/17 10:10 02/15/17 10:10 Lab Results 02/15/17 02/15/17 02/15/17 Range/Units 10:10 10:10 10:10 WBC 9.1 (3.8-10.6) k/uL RBC 5.45 H (3.80-5.40) m/uL Hgb 13.9 (11.4-16.0) gm/dL Hct 45.1 (34.0-46.0) % MCV 82.8 (80.0-100.0) fL MCH 25.5 (25.0-35.0) pg MCHC 30.7 L (31.0-37.0) g/dL RDW 15.2 (11.5-15.5) % Plt Count 200 (150-450) k/uL Neutrophils % 59 % Lymphocytes % 34 % Monocytes % 3 % Eosinophils % 2 % Basophils % 1 % Neutrophils # 5.4 (1.3-7.7) k/uL Lymphocytes # 3.1 (1.0-4.8) k/uL Monocytes # 0.3 (0-1.0) k/uL Eosinophils # 0.2 (0-0.7) k/uL Basophils # 0.1 (0-0.2) k/uL Hypochromasia Slight D-Dimer (<0.60) mg/L FEU Sodium 142 (137-145) mmol/L Potassium 4.0 (3.5-5.1) mmol/L Chloride 107 (98-107) mmol/L Carbon Dioxide 27 (22-30) mmol/L Anion Gap 8 mmol/L BUN 10 (7-17) mg/dL Creatinine 0.75 (0.52-1.04) mg/dL Est GFR (MDRD) Af Amer >60 (>60 ml/min/1.73 sqM) Est GFR (MDRD) Non-Af >60 (>60 ml/min/1.73 sqM) Glucose 91 (74-99) mg/dL Calcium 9.6 (8.4-10.2) mg/dL Magnesium 2.0 (1.6-2.3) mg/dL Total Bilirubin 0.4 (0.2-1.3) mg/dL AST 18 (14-36) U/L ALT 27 (9-52) U/L Alkaline Phosphatase 131 H (38-126) U/L Total Creatine Kinase 41 (30-135) U/L CK-MB (CK-2) 0.4 (0.0-2.4) ng/mL CK-MB (CK-2) Rel Index 1.0 Troponin I <0.012 (0.000-0.034) ng/mL Total Protein 7.2 (6.3-8.2) g/dL Albumin 4.1 (3.5-5.0) g/dL 02/15/17 Range/Units 10:10 WBC (3.8-10.6) k/uL RBC (3.80-5.40) m/uL Hgb (11.4-16.0) gm/dL Hct (34.0-46.0) % MCV (80.0-100.0) fL MCH (25.0-35.0) pg MCHC (31.0-37.0) g/dL RDW (11.5-15.5) % Plt Count (150-450) k/uL Neutrophils % % Lymphocytes % % Monocytes % % Eosinophils % % Basophils % % Neutrophils # (1.3-7.7) k/uL Lymphocytes # (1.0-4.8) k/uL Monocytes # (0-1.0) k/uL Eosinophils # (0-0.7) k/uL Basophils # (0-0.2) k/uL Hypochromasia D-Dimer 0.24 (<0.60) mg/L FEU Sodium (137-145) mmol/L Potassium (3.5-5.1) mmol/L Chloride (98-107) mmol/L Carbon Dioxide (22-30) mmol/L Anion Gap mmol/L BUN (7-17) mg/dL Creatinine (0.52-1.04) mg/dL Est GFR (MDRD) Af Amer (>60 ml/min/1.73 sqM) Est GFR (MDRD) Non-Af (>60 ml/min/1.73 sqM) Glucose (74-99) mg/dL Calcium (8.4-10.2) mg/dL Magnesium (1.6-2.3) mg/dL Total Bilirubin (0.2-1.3) mg/dL AST (14-36) U/L ALT (9-52) U/L Alkaline Phosphatase (38-126) U/L Total Creatine Kinase (30-135) U/L CK-MB (CK-2) (0.0-2.4) ng/mL CK-MB (CK-2) Rel Index Troponin I (0.000-0.034) ng/mL Total Protein (6.3-8.2) g/dL Albumin (3.5-5.0) g/dL - Radiology Data Radiology results: report reviewed (I did review the imaging and reports no acute findings.), image reviewed Disposition Clinical Impression: Uncontrolled hypertension Disposition: HOME SELF-CARE Condition: Good Instructions: Hypertension (ED) Additional Instructions: Double up on your Coreg, keep her follow-up with Dr. Keith in 2 days Referrals: Froilan Keith, [Primary Care Provider] - 1-2 days
[2017-02-15 10:28] LABS: Basophils # (A) 0.1 k/uL (0-0.2); Basophils % (A) 1 %; CH 25.7; CHCM 31.2; Eosinophils # (A) 0.2 k/uL (0-0.7); Eosinophils % (A) 2 %; HCT 45.1 % (34.0-46.0); HGB 13.9 gm/dL (11.4-16.0); Hypochromasia Slight; Luc # (Auto) 0.12; Luc % (Auto) 1; Lymphocytes # (A) 3.1 k/uL (1.0-4.8); Lymphocytes % (A) 34 %; MCH 25.5 pg (25.0-35.0); MCHC 30.7 g/dL (31.0-37.0); MCV 82.8 fL (80.0-100.0); Mean Platelet Volume 10.9; Monocytes # (A) 0.3 k/uL (0-1.0); Monocytes % (A) 3 %; Neutrophils # (A) 5.4 k/uL (1.3-7.7); Neutrophils % (A) 59 %; RBC 5.45 m/uL (3.80-5.40); RDW 15.2 % (11.5-15.5); WBC 9.1 k/uL (3.8-10.6); WBC (Perox) 9.56
[2017-02-15 10:35] LABS: ALT 27 U/L (9-52); AST 18 U/L (14-36); Alkaline Phosphatase 131 U/L (38-126); Anion Gap 8 mmol/L; Blood Urea Nitrogen 10 mg/dL (7-17); Calcium 9.6 mg/dL (8.4-10.2); Carbon Dioxide 27 mmol/L (22-30); Chloride 107 mmol/L (98-107); Glucose 91 mg/dL (74-99); Non-African American GFR(MDRD) >60 (>60 ml/min/1.73 sqM); Sodium 142 mmol/L (137-145); Total Bilirubin 0.4 mg/dL (0.2-1.3); Total Protein 7.2 g/dL (6.3-8.2)
--- NOTE | 2017-02-15 10:39 | XR ---
EXAMINATION TYPE: XR chest 2V DATE OF EXAM: 02/15/2017 HISTORY: cough. REFERENCE: Previous study dated 03/22/2016. FINDINGS: The lungs are clear. Pleural space are clear. The heart is not enlarged. IMPRESSION: NO ACTIVE INTRATHORACIC DISEASE.
[2017-02-15 10:44] LABS: Creatine Kinase 41 U/L (30-135)
[2017-02-15 10:57] LABS: Creatine Kinase MB 0.4 ng/mL (0.0-2.4); Troponin I <0.012 ng/mL (0.000-0.034)
[2017-02-15] MEDS ORDERED: METOPROLOL TARTRATE 5 MG/5 ML VIAL IVP STA (11:28)
[2017-02-15] MEDS ORDERED: METOPROLOL TARTRATE 5 MG/5 ML VIAL IVP ONE ×2 (12:19→12:46)
[2017-02-15 12:35] VITALS: RESP 16
[2017-02-15] MEDS ORDERED: hydrALAZINE HCL 20 MG/ML 1 ML VIAL IVP STA (13:17)
[2017-02-15 13:32] VITALS: BP 176/89; PULSE 65
== END 2017-02-15 13:49 | disposition home or self-care (01) ==
LOC: EC 09:18
DX: I10 Essential (primary) hypertension (principal); R00.0 Tachycardia, unspecified; Z87.891 Personal history of nicotine dependence; Z79.899 Other long term (current) drug therapy; Z88.0 Allergy status to penicillin; Z91.040 Latex allergy status; Z91.09 Other allergy status, other than to drugs and biological substances; Z86.69 Personal history of other diseases of the nervous system and sense organs
CPT/HCPCS: 99283; 96374; 96375 ×2; 96376; 36415; 93005; 85379; 80053; 82550; 82553; 83735; 84484; 85025; 71020; J0360

== ENCOUNTER → 2017-05-07 | Outpatient (CLI) | payer MEDICARE, OTHER ==
[2017-05-07 13:46] VITALS: BP 160/104; PULSE 71; TEMP 97.8; BMI 33.8
--- NOTE | 2017-06-08 17:19 | P.PN ---
Subjective Progress Note Date: 05/07/17 DATE: 05/07/17 CHIEF COMPLAINT: Follow-up gastric bypass. HISTORY OF PRESENT ILLNESS: Rupa Bradley is a 51-year-old female who is status post Esmer-En-Y gastric bypass on 03/21/2016. She is more than 1 year out from her procedure. At her height of 5 foot 2 inches , her ideal body weight is 135 pounds. Her highest weight was 310 pounds. Today she comes in weighing 185 pounds. She has lost 4 pounds in 3 months. Her weight loss is 125 pounds lifetime. Her percent excess weight loss is 72%. Body mass index is reduced from 56.8 down to 33.9. She is 50 pounds overweight. She denies any abdominal pain. No reports of diarrhea or dumping syndrome. She reports most of dental pain. She is tolerating diet. No reports of fevers or chills. PAST MEDICAL HISTORY: 1. Gastroesophageal reflux disease. 2. Depression. 3. Seizure disorder. 4. Hypercholesterolemia. 5. Hypertension. 6. Obstructive sleep apnea. 7. Bladder urgency. 8. Osteoarthritis. 9. Schizoaffective disorder. 10. Tobacco dependence. 11. Morbid obesity, BMI 56.8. 12. Recent unstable angina. 13. Diabetes type 2, resolved. PAST SURGICAL HISTORY: 1. Lab band placement. 2. Lap band removal in June 2013. 3. Anterior cervical disc fusion. 4. History of right broken ankle. 5. Colonoscopy. 6. Upper endoscopy. 7. Status post Esmer-en-Y gastric bypass. MEDICATIONS: 1. Buspar. 2. Zestril. 3. Nystatin. 4. Multivitamin. 5. Vitamin D. 6. Lexapro. 7. Abilify. 8. Coreg. 9. Topamax. ALLERGIES: 1. LATEX. 2. PENICILLIN. 3. DERMABOND. SOCIAL HISTORY: Active second hand tobacco exposure. No recent illicit drug use. FAMILY HISTORY: Significant for breast including colon cancer. REVIEW OF SYSTEMS: CONSTITUTIONAL: At her height of 5 foot 2 inches, her ideal body weight is 135 pounds. Her highest weight was 310 pounds. Today she comes in weighing 185 pounds. Her weight loss is 125 pounds lifetime. Her percent excess weight loss is 72%. Body mass index is reduced from 56.8 down to 33.9.. She has lost 4 pounds since her last follow-up 3 months ago. She is 50 pounds overweight. RESPIRATORY: Resolved obstructive sleep apnea. No reports of recent pneumonias. CARDIOVASCULAR: Continued blood pressure medications. No chest pain or heart attack. PSYCH: Her mood is stable. She denies any extremes of mood. MUSCULOSKELETAL: Moderate improvement of lower back pain including bilateral extremity edema and bilateral hip and knee pain. ENDOCRINE: Resolved diabetes type 2. Denies any active thyroid disorder. GASTROINTESTINAL: History of gastroesophageal reflux disease, now resolved. No dumping syndrome. NEUROLOGICAL: History of chronic migraines. No stroke or seizure disorder. HEENT: No troubles with vision or hearing. Recent tonsillectomy. She reports no dysphagia. HEMATOLOGIC: No reports of DVT or pulmonary embolism. PHYSICAL EXAM: VITAL SIGNS: 5 foot 2, 185 pounds. Body mass index 33.9 Vital Signs Temp 97.8 F 05/07/17 14:45 Pulse 71 05/07/17 14:45 Resp BP 160/104 05/07/17 14:45 Pulse Ox ABDOMEN: Soft, nontender, nondistended. No palpable incisional hernias. MUSCULOSKELETAL: No clubbing, cyanosis, or edema. HEENT: Extraocular movements are grossly intact. No sclera icterus. Hears conversational speech. GENERAL: Well-developed female in no acute distress. NECK: Supple without lymphadenopathy. CHEST: Nonlabored respirations with equal bilateral excursions. CARDIOVASCULAR: Regular rate and rhythm. NEURO: No focal or lateralizing signs. Cranial nerves II through XII grossly within normal limits. PSYCH: Alert and oriented to person, place and time. SKIN: Well perfused. Good skin turgor. ASSESSMENT: 1. Morbid obesity due to excess caloric intake, now improved. 2. Obesity due to excess calories. 3. Body mass index reduced from 56.8 down to 33.9. 4. Chronic hypertension with mild cardiomyopathy. 5. Bipolar disorder without recent psychosis, stable. 6. History of depression without recent psychosis. 7. Nicotine abuse, in remission. 8. Osteoarthritis of bilateral knees secondary to morbid obesity, resolved. 9. Osteoarthritis of lower back secondary to morbid obesity, resolved. 10. Obstructive sleep apnea, moderate, resolved. 11. 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 12. Gastroesophageal reflux disease, resolved. 13. Personal history of distress. 14. Diabetes type 2, resolved. PLAN: 1. Recommend bariatric metabolic panel. 2. Recommended follow-up yearly. 3. Protein intake over 75 g daily. Objective - Vital Signs Vital signs: Vital Signs Temp 97.8 F 05/07/17 13:42 Pulse 71 05/07/17 13:42 Resp BP 160/104 05/07/17 13:42 Pulse Ox Intake & Output 05/06/17 05/07/17 05/07/17 18:59 06:59 18:59 Weight 84.005 kg
== END | disposition home or self-care (01) ==
LOC: BARWHC3 13:03
PROVIDERS: ATTEND Surgery Plastic and Reconstructive Surgery
DX: Z09 Encounter for follow-up examination after completed treatment for conditions other than malignant neoplasm (principal); E66.01 Morbid (severe) obesity due to excess calories; I42.9 Cardiomyopathy, unspecified; I10 Essential (primary) hypertension; F32.9 Major depressive disorder, single episode, unspecified; R06.03 Acute respiratory distress; G40.909 Epilepsy, unspecified, not intractable, without status epilepticus; E78.00 Pure hypercholesterolemia, unspecified; I20.0 Unstable angina; Z72.0 Tobacco use; Z98.84 Bariatric surgery status; Z98.1 Arthrodesis status; Z98.890 Other specified postprocedural states; Z68.33 Body mass index [BMI] 33.0-33.9, adult; Z79.899 Other long term (current) drug therapy; Z88.0 Allergy status to penicillin; Z87.09 Personal history of other diseases of the respiratory system; Z91.040 Latex allergy status; Z91.048 Other nonmedicinal substance allergy status
CPT/HCPCS: 97803; G0463; 99211

== ENCOUNTER → 2017-08-06 | Outpatient (CLI) | payer MEDICARE, OTHER ==
[2017-08-06 10:37] LABS: HCT 41.9 % (34.0-46.0); HGB 13.3 gm/dL (11.4-16.0); MCH 26.2 pg (25.0-35.0); MCHC 31.8 g/dL (31.0-37.0); MCV 82.5 fL (80.0-100.0); Mean Platelet Volume 9.6; Platelet Count 225 k/uL (150-450); RBC 5.08 m/uL (3.80-5.40); RDW 13.3 % (11.5-15.5); WBC 9.9 k/uL (3.8-10.6)
[2017-08-06 10:51] LABS: Partial Thromboplastin Time 23.7 sec (22.0-30.0); Prothrombin Time 9.8 sec (9.0-12.0)
[2017-08-06 10:55] LABS: ALT 16 U/L (9-52); AST 18 U/L (14-36); Alkaline Phosphatase 109 U/L (38-126); Anion Gap 11 mmol/L; Blood Urea Nitrogen 16 mg/dL (7-17); Calcium 9.8 mg/dL (8.4-10.2); Carbon Dioxide 31 mmol/L (22-30); Chloride 103 mmol/L (98-107); Cholesterol 166 mg/dL (<200); Glucose 93 mg/dL (74-99); HDL Cholesterol 44 mg/dL (40-60); LDL Cholesterol,Calculated 81 mg/dL (0-99); Magnesium 2.1 mg/dL (1.6-2.3); Phosphorus 4.8 mg/dL (2.5-4.5); Potassium 4.8 mmol/L (3.5-5.1); Sodium 145 mmol/L (137-145); Total Bilirubin <0.1 mg/dL (0.2-1.3); Total Protein 6.5 g/dL (6.3-8.2); Triglycerides 204 mg/dL (<150)
[2017-08-06 16:26] LABS: Iron Saturation 12.63 (12.00-45.00)
[2017-08-06 16:35] LABS: Folate, Serum 6.8 ng/mL; Vitamin D 25 Hydroxy 24.3 ng/mL (30.0-100.0)
[2017-08-06 17:01] LABS: Parathyroid Hormone Intact 61.2 pg/mL (14.0-72.0)
[2017-08-06 18:48] LABS: Hemoglobin A1C 5.8 % (4.0-6.0)
[2017-08-07 11:26] LABS: Zinc, Serum 74 ug/dL (60-130)
[2017-08-08 07:42] LABS: Vitamin A 48 ug/dL (38-106)
[2017-08-08 15:23] LABS: Vitamin B1 66 ug/L (38-122)
[2017-08-08 17:18] LABS: Selenium 147 mcg/L (63-160)
== END ==
LOC: LABWHC1 09:19
PROVIDERS: ATTEND Surgery Plastic and Reconstructive Surgery
DX: E66.01 Morbid (severe) obesity due to excess calories (principal); E21.1 Secondary hyperparathyroidism, not elsewhere classified; E89.1 Postprocedural hypoinsulinemia; D50.9 Iron deficiency anemia, unspecified; E44.0 Moderate protein-calorie malnutrition; E55.9 Vitamin D deficiency, unspecified; K74.1 Hepatic sclerosis; N19 Unspecified kidney failure; K50.90 Crohn's disease, unspecified, without complications
CPT/HCPCS: 36415; 80053; 80061; 82306; 82525; 82607; 82728; 82746; 83036; 83540; 83550; 83735; 83970; 84100; 84134; 84255; 84425; 84443; 84590; 84630; 85027; 85610; 85730

== ENCOUNTER 2017-09-14 14:01 | Emergency (ER) | payer MEDICARE, OTHER ==
[2017-09-14] MEDS ORDERED: KETOROLAC 30 MG/ML 1 ML VIAL IVP STA (14:18)
--- NOTE | 2017-09-14 14:21 | ED ---
Chest Pain HPI - General Chief Complaint: Chest Pain Stated Complaint: Chest Pain Time Seen by Provider: 09/14/17 14:12 Source: patient, RN notes reviewed Mode of arrival: wheelchair Limitations: no limitations - History of Present Illness Initial Comments: This is a 51-year-old female who states she's had right-sided back pain for the past several days it's sharp and very severe who states she started developing midsternal chest pain is sharp in nature with some numbness to her right arm today while at work this started about 9 AM. He states the pain in her chest is about 8/10 severity back pain is 20/10 he does get worse with movements or deep breathing no fevers chills nausea vomiting sweats or cough she is a smoker she does have COPD but no other medical problems that she is aware of. No phlegm production when she coughs at all. MD Complaint: chest pain - Related Data Home Medications Medication Instructions Recorded Confirmed Escitalopram [Lexapro] 20 mg PO DAILY 10/14/13 09/14/17 ARIPiprazole [Abilify] 20 mg PO DAILY 03/21/16 09/14/17 Carvedilol [Coreg] 6.25 mg PO BID 09/14/17 09/14/17 Cholecalciferol (Vitamin D3) 10,000 unit PO DAILY 09/14/17 09/14/17 [Vitamin D3] Ferrous Sulfate [Feosol] 325 mg PO DAILY 09/14/17 09/14/17 Hydrochlorothiazide [Hydrodiuril] 25 mg PO DAILY 09/14/17 09/14/17 Lisinopril [Zestril] 40 mg PO DAILY 09/14/17 09/14/17 Multivitamin [Multivitamins Adult 1 tab PO BID 09/14/17 09/14/17 Gummies] busPIRone HCL 15 mg PO BID 09/14/17 09/14/17 Previous Rx's Medication Instructions Recorded Cyclobenzaprine [Flexeril] 10 mg PO TID #14 tab 09/14/17 Ibuprofen 800 mg PO Q6HR PRN #20 tablet 09/14/17 Allergies Allergy/AdvReac Type Severity Reaction Status Date / Time latex Allergy Rash/Hives Verified 09/14/17 14:33 Penicillins Allergy Rash/Hives,throat Verified 09/14/17 14:33 swelling DERMABON Allergy Itching Uncoded 09/14/17 14:09 Review of Systems ROS Statement: Those systems with pertinent positive or pertinent negative responses have been documented in the HPI. ROS Other: All systems not noted in ROS Statement are negative. EKG Findings - EKG Results: EKG: interpreted by JONAS, sinus rhythm (Sinus bradycardia rate of 58 ID interval 158 QRS duration 94 QT since QTC 14/[address]-T wave changes.) Past Medical History Past Medical History: COPD, Hypertension, Sleep Apnea/CPAP/BIPAP Additional Past Medical History / Comment(s): TMJ, migraines, edema of legs and ankles, no cpap used, History of Any Multi-Drug Resistant Organisms: None Reported Past Surgical History: Adenoidectomy, Bariatric Surgery, Bladder Surgery, Cholecystectomy, Orthopedic Surgery, Tonsillectomy, Uterine Ablation Additional Past Surgical History / Comment(s): rt ankle ORIF , CERVICAL FUSION, LAPBAND PLACEMENT AND later REMOVAL, rt eye tube placed/removed, uvuloplasty, septoplasty.03-21-16 JUDY EN Y 03/21/16 by Coretta Dailey, Past Anesthesia/Blood Transfusion Reactions: No Reported Reaction Past Psychological History: Schizoaffective Disorder Smoking Status: Current every day smoker Past Alcohol Use History: None Reported Past Drug Use History: None Reported - Past Family History Mother Family Medical History: Diabetes Mellitus Brother(s) Family Medical History: Diabetes Mellitus Father Family Medical History: Cancer Additional Family Medical History / Comment(s): Colon Cancer General Exam - General Exam Comments Initial Comments: This is a well-developed well-nourished awake alert oriented 3 female Limitations: no limitations General appearance: alert, anxious Head exam: Present: atraumatic, normocephalic, normal inspection Eye exam: Present: normal appearance, PERRL, EOMI. Absent: scleral icterus, conjunctival injection, periorbital swelling ENT exam: Present: normal exam, mucous membranes moist Neck exam: Present: normal inspection. Absent: tenderness, meningismus, lymphadenopathy Respiratory exam: Present: normal lung sounds bilaterally, chest wall tenderness (Reproducible tenderness palpation along the costal sternal costochondral margin bilaterally). Absent: respiratory distress, wheezes, rales , rhonchi, stridor Cardiovascular Exam: Present: regular rate, normal rhythm, normal heart sounds, other (Pulses are equal bilaterally +2 over +2 with radial.). Absent: systolic murmur, diastolic murmur, rubs, gallop, clicks GI/Abdominal exam: Present: soft, normal bowel sounds. Absent: distended, tenderness, guarding, rebound, rigid, bruit, pulsatile mass, hernia Extremities exam: Present: normal inspection, full ROM, normal capillary refill. Absent: tenderness, pedal edema, joint swelling, calf tenderness Back exam: Present: normal inspection, tenderness, muscle spasm, paraspinal tenderness. Absent: CVA tenderness (R), CVA tenderness (L), vertebral tenderness Neurological exam: Present: alert, oriented X3, CN II-XII intact Psychiatric exam: Present: normal affect, normal mood Skin exam: Present: warm, dry, intact, normal color. Absent: rash Course Vital Signs 09/14/17 09/14/17 14:06 14:24 Temperature 98.1 F Pulse Rate 63 56 L Respiratory 18 16 Rate Blood Pressure 132/85 158/87 O2 Sat by Pulse 100 100 Oximetry Chest Pain MDM - MDM I did review the imaging and reports no acute findings. Patient is showing improved the presentation is consistent with chest wall pain and costochondritis she'll be discharged with appropriate medication. We did a long discussion regarding smoking cessation on 2 different occasions the total time lasting 3.1 minutes. Disposition Clinical Impression: Chest wall syndrome, Costalchondritis, Back pain, Myofascial pain Disposition: HOME SELF-CARE Condition: Good Instructions: Costochondritis (ED), Musculoskeletal Pain (ED) Prescriptions: Cyclobenzaprine [Flexeril] 10 mg PO TID #14 tab Ibuprofen 800 mg PO Q6HR PRN #20 tablet PRN Reason: Pain Is patient prescribed a controlled substance at d/c from ED?: No Referrals: Froilan Keith DO [Primary Care Provider] - 1-2 days
[2017-09-14 14:24] VITALS: RESP 16
[2017-09-14 14:47] LABS: Basophils # (A) 0.1 k/uL (0-0.2); Basophils % (A) 1 %; Eosinophils # (A) 0.2 k/uL (0-0.7); Eosinophils % (A) 3 %; HCT 38.3 % (34.0-46.0); HGB 12.7 gm/dL (11.4-16.0); Lymphocytes # (A) 3.9 k/uL (1.0-4.8); Lymphocytes % (A) 42 %; MCH 27.1 pg (25.0-35.0); Mean Platelet Volume 8.9; Monocytes # (A) 0.4 k/uL (0-1.0); Monocytes % (A) 4 %; Neutrophils # (A) 4.6 k/uL (1.3-7.7); Neutrophils % (A) 49 %; Platelet Count 202 k/uL (150-450); RBC 4.68 m/uL (3.80-5.40); RDW 13.8 % (11.5-15.5); WBC 9.4 k/uL (3.8-10.6)
[2017-09-14 15:00] LABS: Amylase 53 U/L (30-110); Anion Gap 13 mmol/L; Calcium 9.2 mg/dL (8.4-10.2); Carbon Dioxide 26 mmol/L (22-30); Chloride 105 mmol/L (98-107); D-Dimer 0.4 mg/L FEU (<0.60); Glucose 77 mg/dL (74-99); Lipase 88 U/L (23-300); Partial Thromboplastin Time 25.1 sec (22.0-30.0); Prothrombin Time 9.9 sec (9.0-12.0); Sodium 144 mmol/L (137-145); Total Bilirubin 0.3 mg/dL (0.2-1.3); Total Protein 6.4 g/dL (6.3-8.2)
[2017-09-14 15:01] LABS: Creatine Kinase 52 U/L (30-135)
[2017-09-14 15:04] LABS: ALT 25 U/L (9-52); AST 25 U/L (14-36); Alkaline Phosphatase 94 U/L (38-126); Blood Urea Nitrogen 24 mg/dL (7-17); Magnesium 2.1 mg/dL (1.6-2.3); Potassium 3.9 mmol/L (3.5-5.1)
--- NOTE | 2017-09-14 15:07 | XR ---
EXAMINATION TYPE: XR chest 2V DATE OF EXAM: 09/14/2017 COMPARISON: 02/15/2017 HISTORY: Chest pain TECHNIQUE: Frontal and lateral views of the chest are obtained. FINDINGS: There is no focal air space opacity, pleural effusion, or pneumothorax seen. The cardiac silhouette size is mildly enlarged. The osseous structures are intact. Moderate multilevel degenera tive changes of the thoracic spine are noted. IMPRESSION: No acute cardiopulmonary process.
[2017-09-14 15:15] LABS: Creatine Kinase MB 0.3 ng/mL (0.0-2.4); Troponin I <0.012 ng/mL (0.000-0.034)
[2017-09-14 16:07] VITALS: BP 158/86; PULSE 65; TEMP 979.7
== END 2017-09-14 16:05 | disposition home or self-care (01) ==
LOC: EC 14:01
DX: M94.0 Chondrocostal junction syndrome [Tietze] (principal); M79.1 Myalgia; R20.0 Anesthesia of skin; I10 Essential (primary) hypertension; F17.200 Nicotine dependence, unspecified, uncomplicated; Z79.899 Other long term (current) drug therapy; Z88.0 Allergy status to penicillin; Z91.040 Latex allergy status; Z91.048 Other nonmedicinal substance allergy status
CPT/HCPCS: 99285; 96374; 99406; 36415; 93005; 85379; 83880; 80053; 82150; 82550; 82553; 83690; 83735; 84484; 85025; 85610; 85730; 71046; J1885

== ENCOUNTER → 2017-10-15 | Outpatient (CLI) | payer MEDICARE, OTHER ==
[2017-10-15 13:15] VITALS: BP 111/74; PULSE 64; TEMP 98.2; BMI 33.0
--- NOTE | 2017-10-15 13:19 | P.PN ---
Subjective Progress Note Date: 10/15/17 HPI: She has now complaints. Her HTN is improved with adjustment of her BP medications. No nausea or vomiting. She complains panniculitis. PLAN: 1. She continues to lose weight. 2. Get labs done for today. 3. Recommend nystatin for panniculitis. 4. Abdominal exercises advised. 5. Avoidance of NSAIDs in prevention of stomach ulcers. Objective - Vital Signs Vital signs: Vital Signs Temp 98.2 F 10/15/17 13:13 Pulse 64 10/15/17 13:13 Resp BP 111/74 10/15/17 13:13 Pulse Ox Intake & Output 10/14/17 10/15/17 10/15/17 18:59 06:59 18:59 Weight 81.828 kg
== END | disposition home or self-care (01) ==
LOC: BARWHC3 13:01
PROVIDERS: ATTEND Surgery Plastic and Reconstructive Surgery
DX: M79.3 Panniculitis, unspecified (principal); I10 Essential (primary) hypertension
CPT/HCPCS: 99211

== ENCOUNTER → 2018-04-08 | Outpatient (CLI) | payer MEDICARE, OTHER ==
--- NOTE | 2018-04-08 14:46 | P.PN ---
Subjective Progress Note Date: 04/08/18 DATE: 04/08/2018 CHIEF COMPLAINT: Follow-up gastric bypass. HISTORY OF PRESENT ILLNESS: Rupa Bradley is a 52-year-old female who is status post Esmer-En-Y gastric bypass on 03/21/2016. She is 2 years out. She is moving out of [facility] to [place]. She has gained weight. No reports of abdominal pain. Her blood pressure is high again. She is stress eating. At her height of 5 foot 2 inches, her ideal body weight is 135 pounds. Her highest weight was 310 pounds. Today she comes in weighing 198 pounds from 180 pounds, 6 months ago. She has gained 18 pounds in 6 months. Her weight loss is 112 pounds lifetime. Her percent excess weight loss is 64 %. Body mass index is reduced from 56.8 down to 36.2. She is 63 pounds overweight. PHYSICAL EXAM: VITAL SIGNS: 5 foot 2, 198 pounds. Body mass index 36.2 Vital Signs Temp 97.8 F 04/08/18 14:49 Pulse 88 04/08/18 14:49 Resp 16 04/08/18 14:49 BP Pulse Ox ABDOMEN: Soft, nontender, nondistended. No palpable incisional hernias. MUSCULOSKELETAL: No clubbing, cyanosis, or edema. HEENT: Extraocular movements are grossly intact. No sclera icterus. Hears conversational speech. GENERAL: Well-developed female in no acute distress. NECK: Supple without lymphadenopathy. CHEST: Nonlabored respirations with equal bilateral excursions. CARDIOVASCULAR: Regular rate and rhythm. NEURO: No focal or lateralizing signs. Cranial nerves II through XII grossly within normal limits. PSYCH: Alert and oriented to person, place and time. SKIN: Well perfused. Good skin turgor. ASSESSMENT: 1. Morbid obesity due to excess caloric intake, now improved. 2. Obesity due to excess calories. 3. Body mass index reduced from 56.8 down to 36.2 4. Hypertensive heart disease with cardiomyopathy. 5. Bipolar disorder without recent psychosis, stable. 6. History of depression without recent psychosis. 7. Nicotine abuse, in remission. 8. Osteoarthritis of bilateral knees secondary to morbid obesity, resolved. 9. Osteoarthritis of lower back secondary to morbid obesity, resolved. 10. Obstructive sleep apnea, moderate, resolved. 11. 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 12. Gastroesophageal reflux disease, resolved. 13. Personal history of distress. 14. Dietary surveillance and counseling. PLAN: 1. We went over foods options to help with her high blood pressure 2. Recommend 2-week protein diet to help with weight loss 3. She is transitioning to move and will need records forwarded to local bariatric center. Laboratory Last Values WBC 10.7 k/uL (3.8-10.6) H 04/08/18 15:29 RBC 4.82 m/uL (3.80-5.40) 04/08/18 15:29 Hgb 12.8 gm/dL (11.4-16.0) 04/08/18 15:29 Hct 39.9 % (34.0-46.0) 04/08/18 15:29 MCV 82.8 fL (80.0-100.0) 04/08/18 15:29 MCH 26.6 pg (25.0-35.0) 04/08/18 15:29 MCHC 32.2 g/dL (31.0-37.0) 04/08/18 15:29 RDW 13.7 % (11.5-15.5) 04/08/18 15:29 Plt Count 199 k/uL (150-450) 04/08/18 15:29 PT 9.9 sec (9.0-12.0) 04/08/18 15:29 INR 0.9 (<1.2) 04/08/18 15:29 APTT 25.9 sec (22.0-30.0) 04/08/18 15:29 Sodium 142 mmol/L (135-145) 04/08/18 15:29 Potassium 4.2 mmol/L (3.5-5.5) 04/08/18 15:29 Chloride 105 mmol/L (96-109) 04/08/18 15:29 Carbon Dioxide 28.5 mmol/L (21.6-31.8) 04/08/18 15:29 Anion Gap 8.50 mmol/L (4.00-12.00) 04/08/18 15:29 BUN 16.0 mg/dL (9.0-27.0) 04/08/18 15:29 Creatinine 0.9 mg/dL (0.6-1.5) 04/08/18 15:29 Est GFR (CKD-EPI)AfAm 84.0 (60.0-200.0) 04/08/18 15:29 Est GFR (CKD-EPI)NonAf 72.5 (60.0-200.0) 04/08/18 15:29 BUN/Creatinine Ratio 17.78 Ratio (12.00-20.00) 04/08/18 15:29 Glucose 85 mg/dL (70-110) 04/08/18 15:[address] Glu mg/dL 123 04/08/18 15:29 Hemoglobin A1c 5.9 % (4.0-6.0) 04/08/18 15:29 Calcium 9.1 mg/dL (8.7-10.3) 04/08/18 15:29 Phosphorus 4.8 mg/dL (2.4-5.1) 04/08/18 15:29 Magnesium 2.0 mg/dL (1.5-2.4) 04/08/18 15:29 Iron 46 ug/dL (50-170) L 04/08/18 15:29 TIBC 330 ug/dL (228-460) 04/08/18 15:29 Iron Saturation 13.94 (12.00-45.00) 04/08/18 15:29 Ferritin 19.8 ng/mL (10.0-291.0) 04/08/18 15:29 Total Bilirubin 0.2 mg/dL (0.3-1.2) L 04/08/18 15:29 AST 17 U/L (13-35) 04/08/18 15:29 ALT 17 U/L (8-44) 04/08/18 15:29 Alkaline Phosphatase 108 U/L (41-126) 04/08/18 15:29 Total Protein 6.2 g/dL (6.2-8.2) 04/08/18 15:29 Albumin 4.40 g/dL (3.80-4.90) 04/08/18 15:29 Globulin 1.8 g/dL (1.6-3.3) 04/08/18 15:29 Albumin/Globulin Ratio 2.44 g/dL (1.20-2.10) H 04/08/18 15:29 Prealbumin 22.0 mg/dL (18.0-42.0) 04/08/18 15:29 Triglycerides 154.0 mg/dL (0.0-149.0) H 04/08/18 15:29 Cholesterol 189 mg/dL (0-200) 04/08/18 15:29 LDL Cholesterol, Calc 112.2 mg/dL (0.0-131.0) 04/08/18 15:29 VLDL Cholesterol, Calc 30.80 mg/dL (5.00-40.00) 04/08/18 15:29 HDL Cholesterol 46.0 mg/dL (40.0-60.0) 04/08/18 15:29 Cholesterol/HDL Ratio 4.11 04/08/18 15:29 Vitamin A 49 ug/dL (38-106) 04/08/18 15: Vitamin B1 71 ug/L (38-122) 04/08/18 15:29 Vitamin B12 308.0 pg/mL (200.0-944.0) 04/08/18 15:29 Vitamin D 25-Hydroxy 22.0 ng/mL (30.0-100.0) L 04/08/18 15:29 Folate 13.6 ng/mL 04/08/18 15:29 TSH 1.260 uIU/mL (0.350-5.500) 04/08/18 15:29 PTH Intact 124.2 pg/mL (14.0-72.0) H 04/08/18 15:29 Copper 1279 ug/L (810-1990) 04/08/18 15:29 Selenium 143 mcg/L (63-160) 04/08/18 15:29 Zinc 65 ug/dL (60-130) 04/08/18 15:29 Iron is low Vitamin D is low PTH is elevated Objective - Labs CBC & Chem 7: 04/08/18 15:29 04/08/18 15:29
[2018-04-08 14:52] VITALS: PULSE 88; RESP 16; TEMP 97.8; BMI 36.2
[2018-04-08 15:49] LABS: HCT 39.9 % (34.0-46.0); HGB 12.8 gm/dL (11.4-16.0); MCH 26.6 pg (25.0-35.0); MCHC 32.2 g/dL (31.0-37.0); MCV 82.8 fL (80.0-100.0); Mean Platelet Volume 9.6; Platelet Count 199 k/uL (150-450); RBC 4.82 m/uL (3.80-5.40); RDW 13.7 % (11.5-15.5); WBC 10.7 k/uL (3.8-10.6)
[2018-04-08 15:59] LABS: INR 0.9 (<1.2); Partial Thromboplastin Time 25.9 sec (22.0-30.0); Prothrombin Time 9.9 sec (9.0-12.0)
[2018-04-09 03:00] LABS: Albumin 4.4 g/dL (3.80-4.90); Albumin/Globulin Ratio 2.44 (1.20-2.10); Anion Gap 8.5 mmol/L (4.00-12.00); Calcium 9.1 mg/dL (8.7-10.3); Carbon Dioxide 28.5 mmol/L (21.6-31.8); Globulin 1.8 g/dL (1.6-3.3); LDL Cholesterol,Calculated 112.2 mg/dL (0.0-131.0); Phosphorus 4.8 mg/dL (2.4-5.1); Potassium 4.2 mmol/L (3.5-5.5); Total Bilirubin 0.2 mg/dL (0.3-1.2); Total Protein 6.2 g/dL (6.2-8.2); VLDL Calculation 30.8 mg/dL (5.00-40.00)
[2018-04-09 03:03] LABS: Iron Saturation 13.94 (12.00-45.00)
[2018-04-09 03:14] LABS: Folate, Serum 13.6 ng/mL
[2018-04-09 03:25] LABS: Parathyroid Hormone Intact 124.2 pg/mL (14.0-72.0)
[2018-04-09 04:17] LABS: Hemoglobin A1C 5.9 % (4.0-6.0)
[2018-04-09 15:19] LABS: Vitamin A 49 ug/dL (38-106)
[2018-04-09 15:25] LABS: Zinc, Serum 65 ug/dL (60-130)
[2018-04-10 05:35] LABS: Vitamin B1 71 ug/L (38-122)
[2018-04-13 19:20] LABS: Selenium 143 mcg/L (63-160)
== END | disposition home or self-care (01) ==
LOC: BARWHC3 14:19
PROVIDERS: ATTEND Surgery Plastic and Reconstructive Surgery
DX: Z48.815 Encounter for surgical aftercare following surgery on the digestive system (principal); E66.01 Morbid (severe) obesity due to excess calories; I11.9 Hypertensive heart disease without heart failure; I42.9 Cardiomyopathy, unspecified; F31.9 Bipolar disorder, unspecified; E21.1 Secondary hyperparathyroidism, not elsewhere classified; E89.1 Postprocedural hypoinsulinemia; D50.9 Iron deficiency anemia, unspecified; K90.9 Intestinal malabsorption, unspecified; E55.9 Vitamin D deficiency, unspecified; K76.9 Liver disease, unspecified; N19 Unspecified kidney failure; K50.90 Crohn's disease, unspecified, without complications; Z71.3 Dietary counseling and surveillance; Z68.36 Body mass index [BMI] 36.0-36.9, adult; Z87.891 Personal history of nicotine dependence; Z98.84 Bariatric surgery status
CPT/HCPCS: 84255; 84134; 84425; 80061; 80053; 82607; 82728; 82525; 82746; 83540; 83550; 83735; 84100; 84443; 84590; 84630; 85027; 85610; 85730; 82306; 83970; 83036; 97803; 36415; G0463; 99211

== ENCOUNTER → 2018-05-20 | Outpatient (CLI) | payer MEDICARE, OTHER ==
--- NOTE | 2018-05-20 13:41 | P.PN ---
Subjective Progress Note Date: 05/20/18 DATE: 05/20/2018 CHIEF COMPLAINT: Follow-up gastric bypass. HISTORY OF PRESENT ILLNESS: Rupa Bradley is a 52-year-old female who is status post Esmer-En-Y gastric bypass on 03/21/2016. She is 2.5 years out. She is moving. She has people who smokes around her. She is not smoking. She has troubles with eating food selections. No reports of abdominal pain. Last follow- up was 1 month ago. She is looking for local bariatric care at her new location. At her height of 5 foot 2 inches, her ideal body weight is 135 pounds. Her highest weight was 310 pounds. Today she comes in weighing 201 pounds from 198 pounds, 1 month ago. She has gained 3 pounds in 1 month. Her weight loss is 109 pounds lifetime. Her percent excess weight loss is 63 %. Body mass index is reduced from 56.8 down to 36.7. She is 66 pounds overweight. PHYSICAL EXAM: VITAL SIGNS: 5 foot 2, 201 pounds. Body mass index 36.8 Vital Signs Temp 98.0 F 05/20/18 13:45 Pulse 69 05/20/18 13:45 Resp BP 126/85 05/20/18 13:45 Pulse Ox ABDOMEN: Soft, nontender, nondistended. No palpable incisional hernias. MUSCULOSKELETAL: No clubbing, cyanosis, or edema. HEENT: Extraocular movements are grossly intact. No sclera icterus. Hears conversational speech. GENERAL: Well-developed female in no acute distress. NECK: Supple without lymphadenopathy. CHEST: Nonlabored respirations with equal bilateral excursions. CARDIOVASCULAR: Regular rate and rhythm. NEURO: No focal or lateralizing signs. Cranial nerves II through XII grossly within normal limits. PSYCH: Alert and oriented to person, place and time. SKIN: Well perfused. Good skin turgor. ASSESSMENT: 1. Morbid obesity due to excess caloric intake, now improved. 2. Obesity due to excess calories. 3. Body mass index reduced from 56.8 down to 36.2 4. Hypertensive heart disease with cardiomyopathy. 5. Bipolar disorder without recent psychosis, stable. 6. History of depression without recent psychosis. 7. Nicotine abuse, in remission. 8. Osteoarthritis of bilateral knees secondary to morbid obesity, resolved. 9. Osteoarthritis of lower back secondary to morbid obesity, resolved. 10. Obstructive sleep apnea, moderate, resolved. 11. 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 12. Gastroesophageal reflux disease, resolved. 13. Personal history of distress. 14. Dietary surveillance and counseling. 15. Iron deficiency anemia 16. Vitamin D deficiency PLAN: 1. She is moving to [place] near [place]. 2. Per patient's request, we will arrange for patient chart transfer 3. Medical reconciliation performed with Vitamin supplement of Iron, Vitamin D, and Calcium supplement. 4. We have identified local providers near her in [place]
[2018-05-20 13:47] VITALS: BP 126/85; PULSE 69; TEMP 98; BMI 36.7
== END | disposition home or self-care (01) ==
LOC: BARWHC3 13:00
PROVIDERS: ATTEND Surgery Plastic and Reconstructive Surgery
DX: Z48.815 Encounter for surgical aftercare following surgery on the digestive system (principal); E66.01 Morbid (severe) obesity due to excess calories; I11.9 Hypertensive heart disease without heart failure; I42.9 Cardiomyopathy, unspecified; F31.9 Bipolar disorder, unspecified; D50.9 Iron deficiency anemia, unspecified; E55.9 Vitamin D deficiency, unspecified; Z68.36 Body mass index [BMI] 36.0-36.9, adult; Z71.3 Dietary counseling and surveillance; Z87.891 Personal history of nicotine dependence; Z86.59 Personal history of other mental and behavioral disorders; Z98.84 Bariatric surgery status
CPT/HCPCS: 99211